=== PATIENT | male | born 1995 | race Caucasian/White ===

== ENCOUNTER 2018-06-23 21:29 | Emergency (ER) | payer SELFPAY ==
[2018-06-23] MEDS ORDERED: EMERGEN-C 1,01000 MG PO (22:52)
[2018-06-23] MEDS ORDERED: AUGMENTIN 875-1 EAC1 PO (23:10)
[2018-06-23] MEDS ORDERED: PERCOCET 325 MG1 TA2 PO (23:10)
[2018-06-23 23:18] VITALS: BP 123/59
== END 2018-06-23 23:18 | disposition home or self-care (01) ==
LOC: ED 21:29
DX: S02.5XXA Fracture of tooth (traumatic), initial encounter for closed fracture (principal); F17.200 Nicotine dependence, unspecified, uncomplicated; Z88.2 Allergy status to sulfonamides; Z88.8 Allergy status to other drugs, medicaments and biological substances
CPT/HCPCS: J1885